=== PATIENT | male | born 1980 | race American Indian/Alaskan Native ===

== ENCOUNTER 2017-06-17 11:02 | Emergency (ER) | payer MEDICAID, OTHER ==
[2017-06-17 11:11] VITALS: RESP 18
--- NOTE | 2017-06-17 12:34 | C.PDOC ---
History Of Present Illness 36 y/o male presents to ED with complaints of right testicular pain since yesterday at 7am. Pain is mild and gradually as day went on, he noticed associated swelling. Patient states pain is worse when sitting and reports today swelling and pain reduced, but came for further evaluation. Patient states he was diagnosed with UTI 2 days ago and is taking Keflex, reports dysuria has improved. Denies fever, flank pain, abdominal pain or any other complaints at this time. Time Seen by Provider: 06/17/17 11:31 Chief Complaint (Nursing): Male Genitourinary History Per: Patient History/Exam Limitations: no limitations Onset/Duration Of Symptoms: Days Current Symptoms Are (Timing): Still Present Quality Of Discomfort: "Pain" Associated Symptoms: denies: Nausea, Vomiting Past Medical History Reviewed: Historical Data, Nursing Documentation, Vital Signs Vital Signs: Last Vital Signs Temp 98 F 06/17/17 13:35 Pulse 95 H 06/17/17 13:35 Resp 18 06/17/17 13:35 BP 148/85 06/17/17 13:35 Pulse Ox 100 06/17/17 13:35 - Medical History PMH: No Chronic Diseases Surgical History: No Surg Hx Family History: States: No Known Family Hx - Social History Hx Alcohol Use: No Hx Substance Use: No - Immunization History Hx Tetanus Toxoid Vaccination: No Hx Influenza Vaccination: No Hx Pneumococcal Vaccination: No Review Of Systems Constitutional: Negative for: Fever, Chills Gastrointestinal: Negative for: Nausea, Vomiting, Abdominal Pain Genitourinary: Positive for: Other (Testicular pain). Negative for: Dysuria Skin: Negative for: Rash Physical Exam - Physical Exam Appears: Well, Non-toxic, No Acute Distress, Other (Obese) Skin: Warm, Dry, No Rash Head: Atraumatic, Normacephalic Eye(s): bilateral: Normal Inspection, EOMI Oral Mucosa: Moist Neck: Normal ROM, Supple Cardiovascular: Rhythm Regular, No Murmur Respiratory: Normal Breath Sounds, No Rales, No Rhonchi, No Wheezing Gastrointestinal/Abdominal: Soft, No Tenderness, No Distention, No Guarding, No Rebound Male Genital: Normal Inspection, No Testicular Tenderness (no tenderness right testicle), Testicular Swelling (minimal to right), No Scrotal Swelling, Circumcised Extremity: Bilateral: Atraumatic, Normal Color And Temperature Neurological/Psych: Oriented x3, Normal Speech ED Course And Treatment O2 Sat by Pulse Oximetry: 97 (RA) Pulse Ox Interpretation: Normal - CT Scan/US Testicular US Other Rad Studies (CT/US): Read By Radiologist, Radiology Report Reviewed CT/US Interpretation: HISTORY: rt testicle pain. TECHNIQUE: Realtime sonography through the scrotum with color and doppler flow. COMPARISON: None Available. FINDINGS: RIGHT TESTICLE: Measures 4.0 x 2.3 x 2.9 cm. Homogeneous echotexture. Blood flow is demonstrated. RIGHT EPIDIDYMIS: Epididymal head measures approximately 1.5 x 1.0 x 1.6 cm. LEFT TESTICLE: Measures 4.1 x 2.0 x 2.7 cm. Homogeneous echotexture. Blood flow is demonstrated. LEFT EPIDIDYMIS: Epididymal head measures approximately 1.0 x 1.0 x 1.0 cm. HYDROCELE: Small right-sided hydrocele. VARICOCELE: Small right-sided varicocele. OTHER FINDINGS: None. IMPRESSION: Small right-sided hydrocele. Small right-sided varicocele. Medical Decision Making Medical Decision Making: exam performed with male communications superintendent RN student Roxann Paz. No significant swelling or tenderness to testicle. Ultrasound ordered and reviewed showing hydrocele and varicocele. Discussed result with patient and provide copy of US report. Advise to finish antibiotics and follow up with Urologist Disposition - Disposition Referrals: Sterling Bernal MD [Staff Provider] - Disposition: HOME/ ROUTINE Disposition Time: 13:26 Condition: STABLE Additional Instructions: Please continue and finish your course of antibiotics Take Ibuprofen for any pain or swelling It is important that you follow up and get urine checked after completed antibiotics, to ensure infection has cleared IF you continue to have testicular pain, advise follow up with Urologist Return to the emergency department at any time if symptoms persist or worsen. Instructions: Hydrocele (ED), Urinary Tract Infection in Men (DC), Varicocele ( ED) Forms: [employer] (Wallisian) - POA Present On Arrival: None - Clinical Impression Clinical Impression: Hydrocele, Right varicocele - PA / RUBBER TRIMMER / Resident Statement MD/DO has reviewed & agrees with the documentation as recorded. - Scribe Statement The provider has reviewed the documentation as recorded by the Mayteibkalyani Stinson All medical record entries made by the Dominic were at my direction and personally dictated by me. I have reviewed the chart and agree that the record accurately reflects my personal performance of the history, physical exam, medical decision making, and the department course for this patient. I have also personally directed, reviewed, and agree with the discharge instructions and disposition.
--- NOTE | 2017-06-17 12:39 | US ---
HISTORY: rt testicle pain TECHNIQUE: Realtime sonography through the scrotum with color and doppler flow. COMPARISON: None Available. FINDINGS: RIGHT TESTICLE: Measures 4.0 x 2.3 x 2.9 cm. Homogeneous echotexture. Blood flow is demonstrated. RIGHT EPIDIDYMIS: Epididymal head measures approximately 1.5 x 1.0 x 1.6 cm. LEFT TESTICLE: Measures 4.1 x 2.0 x 2.7 cm. Homogeneous echotexture. Blood flow is demonstrated. LEFT EPIDIDYMIS: Epididymal head measures approximately 1.0 x 1.0 x 1.0 cm. HYDROCELE: Small right-sided hydrocele. VARICOCELE: Small right-sided varicocele. OTHER FINDINGS: None. IMPRESSION: Small right-sided hydrocele. Small right-sided varicocele.
[2017-06-17 13:03] LABS: SQUAMOUS EPITHIAL 1 /hpf (0-5); URINE BACTERIA RARE (<OCC); URINE BILIRUBIN NEGATIVE (NEGATIVE); URINE BLOOD 1+ (NEGATIVE); URINE CLARITY Hazy (Clear); URINE COLOR Yellow (YELLOW); URINE GLUCOSE (UA) NORMAL (Normal); URINE LEUKOCYTE ESTERASE TRACE Leu/uL (Negative); URINE NITRATE NEGATIVE (NEGATIVE); URINE PROTEIN 2+ mg/dL (NEGATIVE)
[2017-06-17 13:38] VITALS: BP 148/85; PULSE 95; TEMP 98
[2017-06-17 15:18] VITALS: O2SAT 97
== END 2017-06-17 13:41 | disposition home or self-care (01) ==
LOC: C.ER 11:02
DX: N43.3 Hydrocele, unspecified (principal); I86.1 Scrotal varices